=== PATIENT | male | born 1980 | race Caucasian/White ===

== ENCOUNTER 2018-07-26 08:28 | Emergency (ER) | payer SELFPAY, OTHER, MEDICAID ==
[2018-07-26] MEDS: CEFTRIAXONE 250 MG INJ IM (09:47)
[2018-07-26] MEDS: AZITHROMYCIN 250 MG TAB PO (09:47)
[2018-07-26 09:51] LABS: URINE BLOOD (Dip) POC Negative (NEGATIVE); URINE GLUCOSE (Dip) POC Negative (NEGATIVE); URINE KETONES (Dip) POC Negative (NEGATIVE); URINE LEUKOCYTE EST (Dip) POC Negative (NEGATIVE); URINE NITRITE (Dip) POC Negative (NEGATIVE); URINE TOTAL PROTEIN POC Negative (NEGATIVE)
== END 2018-07-26 10:21 | disposition home or self-care (01) ==
LOC: FTE 08:28
DX: F41.9 Anxiety disorder, unspecified (principal); R40.2412 Glasgow coma scale score 13-15, at arrival to emergency department
CPT/HCPCS: 81003; 96372; 99284-25